=== PATIENT | female | born 1940 | race Caucasian/White ===

== ENCOUNTER 2020-03-26 18:42 | Inpatient (IN) | payer BC, SELFPAY ==
[~2020-03-26] VITALS: Ht 160 cm; Wt 67.6 kg
[2020-03-26 18:42] VITALS: BP 113/59
[2020-03-26] MEDS ORDERED: ALBUTEROL HFA MDI 90 MCG/ACTUATION 8 GM INH ONE (18:55)
[2020-03-26 20:01] LABS: BASOPHILS % (AUTO) 0.5 % (0.0-2.0); EOSINOPHILS % (AUTO) 0.2 % (0.0-4.0); HEMATOCRIT 20.9 % (36-48); MEAN CORPUSCULAR HEMOGLOBIN 31 pg (27-31); MEAN CORPUSCULAR HGB CONC 32 g/dL (33-37); MEAN CORPUSCULAR VOLUME 97.9 fL (80-94); MONOCYTES # (AUTO) 0.2 K/uL (0.8-1.0); MONOCYTES % (AUTO) 5.3 % (1.7-9.3); NEUTROPHILS # (AUTO) 0.4 K/uL (1.8-7.7); PLATELET COUNT (AUTO) 125 K/uL (140-450); RED BLOOD CELL COUNT(AUTO) 2.13 MIL/uL (4.20-5.40); WHITE BLOOD COUNT (AUTO) 3.7 K/uL (4.8-10.8)
[2020-03-26 20:12] LABS: HEMOGLOBIN 6.7 g/dL (12.0-16.0)
[2020-03-26 20:32] LABS: ALBUMIN 2.8 g/dL (3.4-5.0); ASPARTATE AMINOTRANSFERASE 38 U/L (15-37); CARBON DIOXIDE 25.3 mmol/L (21-32); CHLORIDE 102 mmol/L (98-107); CREATININE 1.4 mg/dL (0.6-1.3); GLUCOSE 120 mg/dL (74-106); SODIUM SERUM 138 mmol/L (136-145); TOTAL BILIRUBIN 0.9 mg/dL (0.0-1.0); UREA NITROGEN, BLOOD 19 mg/dL (7-18)
[2020-03-26 20:34] LABS: ANION GAP 13.7 (8-16); LACTATE DEHYDROGENASE 224 U/L (81-234)
[2020-03-26 20:38] LABS: FIBRINOGEN 290 mg/dL (200-400); PROTHROMBIN TIME 10.6 secs (10.8-13.4)
[2020-03-26 20:41] LABS: C-REACTIVE PROTEIN QUANT 1.5 mg/dL (0.0-0.9)
[2020-03-26] MEDS ORDERED: [UNRECOGNIZED DRUG - CODE] IJ (20:42)
[2020-03-26] MEDS ORDERED: MECL-303 PO (20:42)
[2020-03-26] MEDS ORDERED: FLUO40CA6 PO (20:43)
[2020-03-26] MEDS ORDERED: CHOL500014 PO (20:43)
[2020-03-26] MEDS ORDERED: PYRI-218 PO (20:43)
[2020-03-26] MEDS ORDERED: POTASSIUM CHLORIDE 10 MEQ TABER PO ONE (20:45)
[2020-03-26 21:07] LABS: D-DIMER < 100 ng/ml (0-400)
[2020-03-26 21:39] LABS: APPEARANCE,URINE CLEAR (CLEAR); BILIRUBIN,URINE NEGATIVE (NEGATIVE); BLOOD, URINE NEGATIVE (NEGATIVE); COLOR,URINE YELLOW (YELLOW); LEUKOCYTE ESTERASE ,URINE NEGATIVE (NEGATIVE); NITRITE, URINE NEGATIVE (NEGATIVE); PH,URINE 5.5 (5.0-9.0); UGLUCOSE NEGATIVE (NEGATIVE)
[2020-03-26 22:36] VITALS: BP 120/66
[2020-03-26] MEDS ORDERED: IPRATROPIUM 0.02% 0.5 MG/2.5 ML NEBU INH PRN (23:35)
[2020-03-26] MEDS ORDERED: AZITHROMYCIN 500 MG in DEXTROSE 5% 250 ML IV SCH (23:35)
[2020-03-26] MEDS ORDERED: ACETAMINOPHEN 325 MG TAB PO PRN (23:35)
[2020-03-26] MEDS ORDERED: ONDANSETRON 4 MG/2 ML VIAL IVP PRN (23:35)
[2020-03-26] MEDS ORDERED: ALBUTEROL 0.083% 2.5 MG/3 ML NEBU INH PRN (23:35)
[2020-03-27] VITALS: BP 123/53
[2020-03-27] MEDS ORDERED: cefTRIAXone 1,000 MG VIAL ONE (02:45)
[2020-03-27] MEDS ORDERED: AZITHROMYCIN 500 MG INJ VIAL IV ONE (03:52)
[2020-03-27 08:00] VITALS: BP 116/58
[2020-03-27] MEDS: PYRIDOXINE 50 MG TAB PO SCH ×2 (08:50→21:07)
[2020-03-27] MEDS: MECLIZINE 25 MG TAB PO SCH ×3 (08:50→17:07)
[2020-03-27] MEDS: FLUoxetine 20 MG CAP PO SCH (08:50)
[2020-03-27 11:57] LABS: ALBUMIN 2.7 g/dL (3.4-5.0); ANION GAP 15.7 (8-16); ASPARTATE AMINOTRANSFERASE 38 U/L (15-37); CARBON DIOXIDE 21.3 mmol/L (21-32); CHLORIDE 106 mmol/L (98-107); GLUCOSE 91 mg/dL (74-106); MAGNESIUM 1.6 mg/dL (1.8-2.4); SODIUM SERUM 139 mmol/L (136-145); TOTAL BILIRUBIN 1.3 mg/dL (0.0-1.0); UREA NITROGEN, BLOOD 15 mg/dL (7-18)
[2020-03-27 15:24] LABS: HEMOGLOBIN 7.7 g/dL (12.0-16.0); MONOCYTES # (AUTO) 0.1 K/uL (0.8-1.0); NEUTROPHILS # (AUTO) 0.3 K/uL (1.8-7.7)
[2020-03-27 15:28] LABS: EOSINOPHILS % (AUTO) 0.1 % (0.0-4.0); HEMATOCRIT 24.2 % (36-48); LYMPHOCYTES # (AUTO) 1.4 K/uL (2.5-16.5); LYMPHOCYTES % (AUTO) 78.6 % (20.5-51.1); MEAN CORPUSCULAR HEMOGLOBIN 31 pg (27-31); MEAN CORPUSCULAR HGB CONC 32 g/dL (33-37); MEAN CORPUSCULAR VOLUME 96.3 fL (80-94); MONOCYTES % (AUTO) 6.8 % (1.7-9.3); NEUTROPHILS % (AUTO) 14.5 % (42.2-75.2); PLATELET COUNT (AUTO) 106 K/uL (140-450); RED BLOOD CELL COUNT(AUTO) 2.51 MIL/uL (4.20-5.40); RED CELL DISTRIBUTION WIDTH 29.7 % (11.6-13.7)
[2020-03-27 15:32] LABS: WHITE BLOOD COUNT (AUTO) 1.8 K/uL (4.8-10.8)
[2020-03-27 16:00] VITALS: BP 127/60
[2020-03-27] MEDS: ZINC SULF 220 MG CAP PO SCH (21:07)
[2020-03-28] VITALS: BP 115/57
[2020-03-28 08:00] VITALS: BP 102/53
[2020-03-28] MEDS: FLUoxetine 20 MG CAP PO SCH (08:52)
[2020-03-28] MEDS: MECLIZINE 25 MG TAB PO SCH ×3 (08:52→16:48)
[2020-03-28] MEDS: ZINC SULF 220 MG CAP PO SCH (08:52)
[2020-03-28] MEDS: PYRIDOXINE 50 MG TAB PO SCH (08:52)
[2020-03-28] MEDS ORDERED: VITAMIN D 400 IU TAB PO SCH (09:00)
[2020-03-28 09:11] LABS: HEMATOCRIT 25.9 % (36-48); HEMOGLOBIN 8.7 g/dL (12.0-16.0); MEAN CORPUSCULAR HEMOGLOBIN 32 pg (27-31); MEAN CORPUSCULAR HGB CONC 34 g/dL (33-37); MEAN CORPUSCULAR VOLUME 95.1 fL (80-94); PLATELET COUNT (AUTO) 91 K/uL (140-450); RED BLOOD CELL COUNT(AUTO) 2.73 MIL/uL (4.20-5.40); RED CELL DISTRIBUTION WIDTH 25.1 % (11.6-13.7); WHITE BLOOD COUNT (AUTO) 2.2 K/uL (4.8-10.8)
[2020-03-28 09:41] LABS: EOSINOPHILS % (MANUAL) 1 % (0-4); LYMPHOCYTES % (MANUAL) 70 % (20-46); MONOCYTES % (MANUAL) 6 % (5-12)
[2020-03-28 11:45] LABS: ALBUMIN 2.6 g/dL (3.4-5.0); ANION GAP 15.6 (8-16); ASPARTATE AMINOTRANSFERASE 40 U/L (15-37); CARBON DIOXIDE 23.5 mmol/L (21-32); CHLORIDE 107 mmol/L (98-107); CREATININE 1.1 mg/dL (0.6-1.3); GLUCOSE 77 mg/dL (74-106); POTASSIUM 4.1 mmol/L (3.5-5.1); SODIUM SERUM 142 mmol/L (136-145); TOTAL BILIRUBIN 1.2 mg/dL (0.0-1.0); UREA NITROGEN, BLOOD 17 mg/dL (7-18)
[2020-03-28] MEDS ORDERED: LACTULOSE 20 GM/30 ML UDC PO SCH (12:44)
[2020-03-28 16:00] VITALS: BP 101/56
[2020-03-28 19:42] VITALS: BP 101/56
[2020-03-28] MEDS ORDERED: DOCUSATE SODIUM 100 MG GELCAP PO SCH (21:00)
[2020-03-29] MEDS ORDERED: ENOXAPARIN 40 MG/0.4 ML SYR SUBQ SCH (09:00)
== END 2020-03-28 21:16 | disposition home or self-care (01) | DRG 177 ==
LOC: EEVIPCON 18:42 → MED 18:42 → MMU 21:30 → MTU 22:00
PROVIDERS: ADMIT Internal Medicine Pulmonary Disease; ATTEND Internal Medicine Pulmonary Disease
PROC: 30233N1 Transfusion of Nonautologous Red Blood Cells into Peripheral Vein, Percutaneous Approach (ICD-10-PCS; principal; 2020-03-26)
DX: U07.1 COVID-19 (principal); J12.89 Other viral pneumonia; J96.01 Acute respiratory failure with hypoxia; D61.818 Other pancytopenia; D46.9 Myelodysplastic syndrome, unspecified; H81.09 Meniere's disease, unspecified ear; E87.6 Hypokalemia; N28.9 Disorder of kidney and ureter, unspecified; Z96.643 Presence of artificial hip joint, bilateral; Z79.899 Other long term (current) drug therapy
CPT/HCPCS: 36415; 36600; 71045; 80053; 81003; 82550; 82728; 82803; 83540; 83605; 83615; 83735; 83880; 84484; 85025; 85379; 85384; 85610; 85730; 86140; 86886; 86900; 86901; 86920; 87040; 87081; 87086; 93005; 94664; 99285; J0456; J0696; J2405; J7030; J7060; J8597; P9016

== ENCOUNTER 2024-08-25 05:35 | Inpatient (IN) | payer BC ==
[~2024-08-25] VITALS: Ht 160 cm; Wt 68.5 kg
[2024-08-25] VITALS (9 sets, daily range): BP systolic 111–135; BP diastolic 42–75; PULSE 62–125; RESP 16–25; TEMP 96–98.3; O2SAT 95–100
[~2024-08-25 05:35] MED LIST: CHOL500014 PO; FLUO40CA6 PO; MECL-303 PO; PYRI-218 PO; [UNRECOGNIZED DRUG - CODE] IJ
[2024-08-25] MEDS: ALBUTEROL SULFATE/IPRATROPIU 3 ML SOL IH ONE (05:54)
[2024-08-25 06:15] LABS: BASOPHILS # (AUTO) 0.1 K/uL (0.00-0.22); BASOPHILS % (AUTO) 0.6 % (0.0-2.0); EOSINOPHILS % (AUTO) 0.3 % (0.0-4.0); HEMATOCRIT 26.4 % (36-48); HEMOGLOBIN 8.3 g/dL (12.0-16.0); LYMPHOCYTES # (AUTO) 2.2 K/uL (2.5-16.5); LYMPHOCYTES % (AUTO) 23.2 % (20.5-51.1); MEAN CORPUSCULAR HEMOGLOBIN 31 pg (27-31); MEAN CORPUSCULAR HGB CONC 32 g/dL (33-37); MEAN CORPUSCULAR VOLUME 97.9 fL (80-94); MONOCYTES # (AUTO) 0.5 K/uL (0.8-1.0); MONOCYTES % (AUTO) 5.1 % (1.7-9.3); NEUTROPHILS # (AUTO) 6.6 K/uL (1.8-7.7); NEUTROPHILS % (AUTO) 70.8 % (42.2-75.2); PLATELET COUNT (AUTO) 133 K/uL (140-450); RED BLOOD CELL COUNT(AUTO) 2.69 MIL/uL (4.20-5.40); RED CELL DISTRIBUTION WIDTH 28.9 % (11.6-13.7); WHITE BLOOD COUNT (AUTO) 9.3 K/uL (4.8-10.8)
[2024-08-25] MEDS: LEVOFLOXACIN 500 MG/D5W PREMIX 100 ML IV ONE (06:26)
[2024-08-25 07:18] LABS: LACTIC ACID 4.4 mmol/L (0.4-2.0)
[2024-08-25 07:24] LABS: APPEARANCE,URINE CLEAR (CLEAR); BILIRUBIN,URINE NEGATIVE (NEGATIVE); BLOOD, URINE NEGATIVE (NEGATIVE); COLOR,URINE YELLOW (YELLOW); LEUKOCYTE ESTERASE ,URINE 1+ (NEGATIVE); NITRITE, URINE NEGATIVE (NEGATIVE); PROTEIN,URINE NEGATIVE (NEGATIVE); UGLUCOSE NEGATIVE (NEGATIVE); UROBILINOGEN,URINE 0.2 EU/dL (0.2 - 1)
[2024-08-25 07:26] LABS: FLU A ANTIGEN negative (NEGATIVE); FLU B ANTIGEN NEGATIVE (NEGATIVE)
[2024-08-25 07:48] LABS: RBC,URINE 0-5 /HPF (0-5); SQUAMOUS EPITHELIAL CELL,UR 0-3 (FEW) /LPF (0-3 (FEW))
[2024-08-25 07:49] LABS: BACTERIA,URINE OCCASSIONAL /HPF (None Seen)
[2024-08-25] MEDS: NACL 0.9% 1,000 ML IV ONE (07:55)
[2024-08-25] MEDS ORDERED: ACETAMINOPHEN 325 MG TAB PO PRN (08:20)
[2024-08-25] MEDS ORDERED: POTASSIUM CHLORIDE 10 MEQ TABER PO PRN (08:20)
[2024-08-25] MEDS ORDERED: MAGNESIUM OXIDE 400 MG TAB PO PRN (08:20)
[2024-08-25] MEDS ORDERED: AZITHROMYCIN 500 MG in DEXTROSE 5% 250 ML IV SCH (08:20)
[2024-08-25] MEDS ORDERED: MORPHINE SULFATE 4 MG/ML SYR IVP PRN (08:20)
[2024-08-25] MEDS ORDERED: KCL 20 MEQ IN 100 mL PREMIX 200 ML IV PRN (08:20)
[2024-08-25 08:35] LABS: ANION GAP 14.9 (8-16); CALCIUM 8.3 mg/dL (8.5-10.1); CARBON DIOXIDE 23.6 mmol/L (21-32); CHLORIDE 104 mmol/L (98-107); CREATININE 1.4 mg/dL (0.6-1.3); GLUCOSE 128 mg/dL (74-106); POTASSIUM 4.5 mmol/L (3.5-5.1); SODIUM SERUM 138 mmol/L (136-145); UREA NITROGEN, BLOOD 30 mg/dL (7-18)
[2024-08-25] MEDS ORDERED: BUS5 PO (08:55)
[2024-08-25] MEDS ORDERED: ALLO100T21 PO (08:55)
[2024-08-25] MEDS ORDERED: POTA10CA28 PO (08:55)
[2024-08-25] MEDS ORDERED: RENAL DOSING PER PHARMACY MC PRN (08:55)
[2024-08-25] MEDS ORDERED: DOCU-299 PO (08:55)
[2024-08-25] MEDS ORDERED: ASPI-1822 PO (08:55)
[2024-08-25] MEDS ORDERED: ALPR0.252 PO (08:55)
[2024-08-25] MEDS ORDERED: ALEN70SO2 PO (08:55)
[2024-08-25] MEDS ORDERED: FURO-570 PO (08:55)
[2024-08-25] MEDS ORDERED: MECL-370 PO (08:55)
[2024-08-25 10:04] LABS: BLOOD GAS BASE EXCESS -1.4 mmol/L (-2.0-3.0); BLOOD GAS HCO3 23.5 mmol/L (21.0-28.0); BLOOD GAS PCO2 40.1 mmHg (32.0-45.0); BLOOD GAS PH 7.385 (7.350-7.450); BLOOD GAS PO2 65.6 mmHg (83.0-108.0)
[2024-08-25 10:05] LABS: BLOOD GAS O2 SAT% 91.4 % (94.0-98.0); FRACTIONATED INSPIRED OXYGEN 0.36 % (0.21-100.00)
[2024-08-25 10:07] LABS: ALBUMIN 3.5 g/dL (3.4-5.0); ALKALINE PHOSPHATASE 92 U/L (50-136); ASPARTATE AMINOTRANSFERASE 25 U/L (15-37); BILIRUBIN,DIRECT 0.2 mg/dL (0.0-0.3); TOTAL BILIRUBIN 0.8 mg/dL (0.0-1.0); TOTAL PROTEIN, SERUM 8.1 g/dL (6.4-8.2)
[2024-08-25 10:22] LABS: ALANINE AMINOTRANSFERASE 4 U/L (12-78)
[2024-08-25] MEDS: ALBUTEROL SULFATE/IPRATROPIU 3 ML SOL IH SCH ×2 (13:40→19:46)
[2024-08-25] MEDS: MIDODRINE 5 MG TAB PO SCH (14:02)
[2024-08-25] MEDS: ONDANSETRON 4 MG/2 ML VIAL IVP PRN (15:23)
[2024-08-25] MEDS ORDERED: ALBUTEROL SULFATE/IPRATROPIU 3 ML SOL IH PRN (17:30)
[2024-08-25] MEDS: DOCUSATE SODIUM 100 MG GELCAP PO SCH (23:06)
[2024-08-25] MEDS: busPIRone 5 MG TAB PO SCH (23:06)
[2024-08-26] VITALS (10 sets, daily range): BP systolic 104–127; BP diastolic 44–99; PULSE 74–96; RESP 16–18; TEMP 96.9–98.9; O2SAT 95–100
[2024-08-26] MEDS: LEVOFLOXACIN 250 MG/D5 PREMIX 50 ML IV SCH (06:15)
[2024-08-26 06:46] LABS: BASOPHILS % (AUTO) 0.3 % (0.0-2.0); EOSINOPHILS % (AUTO) 0.3 % (0.0-4.0); LYMPHOCYTES # (AUTO) 1.4 K/uL (2.5-16.5); LYMPHOCYTES % (AUTO) 15.4 % (20.5-51.1); MEAN CORPUSCULAR HEMOGLOBIN 30 pg (27-31); MEAN CORPUSCULAR HGB CONC 31 g/dL (33-37); MEAN CORPUSCULAR VOLUME 97.9 fL (80-94); MONOCYTES # (AUTO) 1.1 K/uL (0.8-1.0); MONOCYTES % (AUTO) 11.9 % (1.7-9.3); NEUTROPHILS # (AUTO) 6.4 K/uL (1.8-7.7); NEUTROPHILS % (AUTO) 72.1 % (42.2-75.2); PLATELET COUNT (AUTO) 131 K/uL (140-450); RED BLOOD CELL COUNT(AUTO) 2.17 MIL/uL (4.20-5.40); RED CELL DISTRIBUTION WIDTH 28.4 % (11.6-13.7); WHITE BLOOD COUNT (AUTO) 8.9 K/uL (4.8-10.8)
[2024-08-26 06:51] LABS: HEMATOCRIT 21.3 % (36-48); HEMOGLOBIN 6.6 g/dL (12.0-16.0)
[2024-08-26 07:03] LABS: LACTIC ACID 0.6 mmol/L (0.4-2.0)
[2024-08-26 07:09] LABS: ANION GAP 9.7 (8-16); CARBON DIOXIDE 26.5 mmol/L (21-32); CHLORIDE 107 mmol/L (98-107); CREATININE 1.7 mg/dL (0.6-1.3); GLUCOSE 105 mg/dL (74-106); POTASSIUM 4.2 mmol/L (3.5-5.1); SODIUM SERUM 139 mmol/L (136-145); UREA NITROGEN, BLOOD 39 mg/dL (7-18)
[2024-08-26] MEDS: ASPIRIN 81 MG TAB.CHEW PO SCH (08:28)
[2024-08-26] MEDS: FLUoxetine 20 MG CAP PO SCH (08:28)
[2024-08-26] MEDS: MAG SULF 2000 MG/WATER PREMIX 50 ML IV SCH (16:00)
[2024-08-26] MEDS: HYDROcodone/APAP 5/325 MG 1 TAB TAB PO PRN (21:10)
[2024-08-26 23:26] LABS: HEMATOCRIT 27.1 % (36-48); HEMOGLOBIN 8.9 g/dL (12.0-16.0)
[2024-08-27] VITALS (10 sets, daily range): BP systolic 102–156; BP diastolic 49–61; PULSE 64–87; RESP 16–21; TEMP 97.1–97.8; O2SAT 93–100
[2024-08-27 06:59] LABS: BASOPHILS # (AUTO) 0.2 K/uL (0.00-0.22); EOSINOPHILS % (AUTO) 0.7 % (0.0-4.0); HEMATOCRIT 27.6 % (36-48); LYMPHOCYTES # (AUTO) 1.6 K/uL (2.5-16.5); MEAN CORPUSCULAR HEMOGLOBIN 31 pg (27-31); MEAN CORPUSCULAR HGB CONC 33 g/dL (33-37); MEAN CORPUSCULAR VOLUME 95.1 fL (80-94); MONOCYTES # (AUTO) 0.9 K/uL (0.8-1.0); MONOCYTES % (AUTO) 16.7 % (1.7-9.3); NEUTROPHILS # (AUTO) 2.8 K/uL (1.8-7.7); NEUTROPHILS % (AUTO) 50.6 % (42.2-75.2); PLATELET COUNT (AUTO) 153 K/uL (140-450); RED CELL DISTRIBUTION WIDTH 23.7 % (11.6-13.7); WHITE BLOOD COUNT (AUTO) 5.5 K/uL (4.8-10.8)
[2024-08-27 07:24] LABS: CHLORIDE 109 mmol/L (98-107); SODIUM SERUM 141 mmol/L (136-145); UREA NITROGEN, BLOOD 39 mg/dL (7-18)
[2024-08-27 08:25] LABS: ANION GAP 10.5 (8-16); CALCIUM 8.4 mg/dL (8.5-10.1); CARBON DIOXIDE 25.8 mmol/L (21-32); CREATININE 1.3 mg/dL (0.6-1.3); GLUCOSE 100 mg/dL (74-106); POTASSIUM 4.3 mmol/L (3.5-5.1)
[2024-08-27] MEDS ORDERED: LACTULOSE 20 GM/30 ML UDC PO PRN (11:25)
[2024-08-27] MEDS: predniSONE 20 MG TAB PO SCH (13:25)
[2024-08-28] VITALS (11 sets, daily range): BP systolic 114–159; BP diastolic 44–70; PULSE 63–80; RESP 16–20; TEMP 97.3–98; O2SAT 90–98
[2024-08-28 06:30] LABS: BASOPHILS % (AUTO) 0.3 % (0.0-2.0); EOSINOPHILS % (AUTO) 0.1 % (0.0-4.0); HEMATOCRIT 30.1 % (36-48); HEMOGLOBIN 9.7 g/dL (12.0-16.0); LYMPHOCYTES # (AUTO) 1.1 K/uL (2.5-16.5); LYMPHOCYTES % (AUTO) 26.8 % (20.5-51.1); MEAN CORPUSCULAR HEMOGLOBIN 31 pg (27-31); MEAN CORPUSCULAR HGB CONC 32 g/dL (33-37); MEAN CORPUSCULAR VOLUME 95.2 fL (80-94); MONOCYTES # (AUTO) 0.4 K/uL (0.8-1.0); MONOCYTES % (AUTO) 10.6 % (1.7-9.3); NEUTROPHILS # (AUTO) 2.5 K/uL (1.8-7.7); NEUTROPHILS % (AUTO) 62.2 % (42.2-75.2); PLATELET COUNT (AUTO) 186 K/uL (140-450); RED BLOOD CELL COUNT(AUTO) 3.16 MIL/uL (4.20-5.40); RED CELL DISTRIBUTION WIDTH 23.6 % (11.6-13.7)
[2024-08-28 06:34] LABS: ANION GAP 10.3 (8-16); CALCIUM 8.7 mg/dL (8.5-10.1); CARBON DIOXIDE 29.2 mmol/L (21-32); CHLORIDE 103 mmol/L (98-107); CREATININE 1.3 mg/dL (0.6-1.3); GLUCOSE 165 mg/dL (74-106); POTASSIUM 4.5 mmol/L (3.5-5.1); SODIUM SERUM 138 mmol/L (136-145); UREA NITROGEN, BLOOD 34 mg/dL (7-18)
[2024-08-28] MEDS: bisacodyL 10 MG SUPP RC PRN (21:19)
[2024-08-29] VITALS (9 sets, daily range): BP systolic 119–146; BP diastolic 54–66; PULSE 61–83; RESP 16–20; TEMP 97.9–98.2; O2SAT 93–98
[2024-08-29 07:36] LABS: ANION GAP 9.1 (8-16); CALCIUM 8.9 mg/dL (8.5-10.1); CARBON DIOXIDE 28.9 mmol/L (21-32); CHLORIDE 102 mmol/L (98-107); CREATININE 1.2 mg/dL (0.6-1.3); GLUCOSE 104 mg/dL (74-106); SODIUM SERUM 136 mmol/L (136-145); UREA NITROGEN, BLOOD 42 mg/dL (7-18)
[2024-08-29 07:40] LABS: HEMATOCRIT 28.5 % (36-48); MEAN CORPUSCULAR HEMOGLOBIN 31 pg (27-31); MEAN CORPUSCULAR HGB CONC 33 g/dL (33-37); MEAN CORPUSCULAR VOLUME 95.7 fL (80-94); RED BLOOD CELL COUNT(AUTO) 2.97 MIL/uL (4.20-5.40); WHITE BLOOD COUNT (AUTO) 8.3 K/uL (4.8-10.8)
[2024-08-29 08:05] LABS: RED CELL DISTRIBUTION WIDTH 24.2 % (11.6-13.7)
[2024-08-29 08:06] LABS: LYMPHOCYTES % (MANUAL) 29 % (20-46); MONOCYTES % (MANUAL) 15 % (5-12)
[2024-08-29 08:07] LABS: EOSINOPHILS % (MANUAL) 2 % (0-4)
[2024-08-29 08:11] LABS: HEMOGLOBIN 9.3 g/dL (12.0-16.0); PLATELET COUNT (AUTO) 192 K/uL (140-450)
[2024-08-29] MEDS ORDERED: LACT-58 PO (11:07)
[2024-08-29] MEDS ORDERED: LEVO750T75 PO (11:08)
== END 2024-08-29 16:18 | disposition home or self-care (01) | DRG 871 ==
LOC: MED 05:35 → MTU 08:19
PROVIDERS: ADMIT Student in an Organized Health Care Education/Training Program; ATTEND Student in an Organized Health Care Education/Training Program
PROC: 5A09357 Assistance with Respiratory Ventilation, Less than 24 Consecutive Hours, Continuous Positive Airway Pressure (ICD-10-PCS; 2024-08-25)
PROC: 30233N1 Transfusion of Nonautologous Red Blood Cells into Peripheral Vein, Percutaneous Approach (ICD-10-PCS; principal; 2024-08-26)
DX: A41.9 Sepsis, unspecified organism (principal); J18.9 Pneumonia, unspecified organism; J96.01 Acute respiratory failure with hypoxia; J96.02 Acute respiratory failure with hypercapnia; I10 Essential (primary) hypertension; E78.5 Hyperlipidemia, unspecified; Z20.822 Contact with and (suspected) exposure to COVID-19; F41.9 Anxiety disorder, unspecified; Z79.899 Other long term (current) drug therapy; Z88.0 Allergy status to penicillin; Z90.49 Acquired absence of other specified parts of digestive tract; Z79.82 Long term (current) use of aspirin
CPT/HCPCS: 36415; 36430; 71045; 80048; 80076; 81001; 83605; 83735; 83880; 84484; 85018; 85025; 86886; 86900; 86901; 86920; 87040; 87081; 87086; 93005; 94640; 94660; 96361; 96374; 97163-GP; 97530; 99285; J1644; J1956; J2405; J3475; J7512; P9016; Q0092